=== PATIENT | male | born 1995 | race Hispanic/Latino ===

== ENCOUNTER 2017-12-21 09:01 | Emergency (ER) | payer SELFPAY ==
--- NOTE | 2017-12-21 09:17 | ER ---
Nurse's Notes [facility] Name: Cam Hargrove Age: 22 yrs Sex: Male : 1995 Arrival Date: 12/21/2017 Time: 09:05 Bed 13 Private MD: None, None Diagnosis: Acute pharyngitis Presentation: 12/21 09:14 Presenting complaint: Patient states: Sore throat started yesterday, worse today. jl7 Denies shortness of breath and cough. Transition of care: patient was not received from another setting of care. Onset of symptoms was December 20, 2017. Risk Assessment: Do you want to hurt yourself or someone else? Patient reports no desire to harm self or others. Initial Sepsis Screen: Does the patient meet any 2 criteria? No. Patient's initial sepsis screen is negative. Does the patient have a suspected source of infection? No. Patient's initial sepsis screen is negative. Care prior to arrival: None. 09:14 Method Of Arrival: Ambulatory [facility] 09:14 Acuity: YE 4 jl7 Triage Assessment: 09:16 General: Appears in no apparent distress. uncomfortable, Behavior is calm, cooperative, jl7 appropriate for age. Pain: Complains of pain in throat Pain does not radiate. Pain currently is 10 out of 10 on a pain scale. Quality of pain is described as "sore" Pain began 1 day ago. Is continuous, Aggravated by "swallowing". EENT: Throat is reddened has enlarged tonsils bilaterally. Neuro: Level of Consciousness is awake, alert, obeys commands, Oriented to person, place, time, situation. Cardiovascular: Patient's skin is warm and dry. Respiratory: Airway is patent Respiratory effort is even, unlabored, Respiratory pattern is regular, symmetrical. GI: No signs and/or symptoms were reported involving the gastrointestinal system. Patient currently denies diarrhea, nausea, vomiting. : No signs and/or symptoms were reported regarding the genitourinary system. Derm: Skin is pink, warm \\T\\ dry. Musculoskeletal: No signs and/or symptoms reported regarding the musculoskeletal system. Historical: - Allergies: 09:16 No Known Allergies; jl7 - Home Meds: 09:16 None [Active]; jl7 - PMHx: 09:16 Anxiety; Hypertension; jl7 - PSHx: 09:16 None; jl7 - Immunization history:: Adult Immunizations unknown. - Social history:: Smoking status: Patient uses tobacco products, smokes one-half pack cigarettes per day. - Ebola Screening: : No symptoms or risks identified at this time. Screenin:18 Abuse screen: Denies threats or abuse. Denies injuries from another. Nutritional jl7 screening: No deficits noted. Tuberculosis screening: No symptoms or risk factors identified. Fall Risk None identified. Assessment: 09:18 General: See triage assessment. Respiratory: Airway is patent Respiratory effort is jl7 even, unlabored, Respiratory pattern is regular, symmetrical, Breath sounds are clear. Vital Signs: 09:16 BP 142 / 101; Pulse 101; Resp 18 S; Temp 99.9(O); Pulse Ox 96% on R/A; Weight 90.72 kg jl7 (R); Height 6 ft. 1 in. (185.42 cm) (R); Pain 10/10; 09:34 BP 150 / 98; Pulse 87; Resp 18; Pulse Ox 98% ; jl7 09:16 Body Mass Index 26.39 (90.72 kg, 185.42 cm) jl7 ED Course: 09:05 Patient arrived in ED. mr 09:05 None, None is Private Physician. mr 09:06 Natalya Quijano, LEXIE is Primary Nurse. jl7 09:07 Foreign Mcdowell MD is Attending Physician. kdr 09:15 Triage completed. jl7 09:16 Arm band placed on right wrist. jl7 09:18 Patient has correct armband on for positive identification. Bed in low position. Call jl7 light in reach. Side rails up X 1. 09:18 Pulse ox on. NIBP on. jl7 09:18 No provider procedures requiring assistance completed. Patient did not have IV access jl7 during this emergency room visit. Administered Medications: 09:26 Drug: traMADol 50 mg Route: PO; jl7 09:33 Follow up: Response: Medication administered at discharge. jl7 09:26 Drug: Amoxicillin 500 mg Route: PO; jl7 09:33 Follow up: Response: Medication administered at discharge. jl7 Outcome: 09:16 Discharge ordered by . kdr 09:32 Discharged to home ambulatory. jl7 09:32 Condition: stable 09:32 Discharge instructions given to patient, Instructed on discharge instructions, follow up and referral plans. medication usage, Demonstrated understanding of instructions, follow-up care, medications, Prescriptions given X 2. 09:34 Patient left the ED. jl7 Signatures: Foreign Mcdowell MD MD [facility] JayLisha Jahala, RN RN jl7
--- NOTE | 2017-12-21 09:17 | EDPHYS ---
Physician Documentation [facility] Name: Cam Hargrove Age: 22 yrs Sex: Male : 1995 Arrival Date: 12/21/2017 Time: 09:05 Bed 13 Private MD: None, None ED Physician Foreign Mcdowell HPI: 12/21 09:22 This 22 yrs old Male presents to ER via Ambulatory with complaints of Sore kdr Throat. 09:22 The patient presents with sore throat, dysphagia, of solids, of liquids, of both solids kdr and liquids. The patient describes throat pain as constant, raw, scratchy. Onset: The symptoms/episode began/occurred gradually, 3 day(s) ago. Severity of symptoms: At their worst the symptoms were mild, in the emergency department the symptoms are unchanged. Modifying factors: The symptoms are alleviated by nothing, the symptoms are aggravated by fluids, foods, swallowing, Patient's oral intake status: good. Associated signs and symptoms: The patient has no apparent associated signs or symptoms. The patient has experienced similar episodes in the past, a few times. The patient has not recently seen a physician. Historical: - Allergies: 09:16 No Known Allergies; jl7 - Home Meds: 09:16 None [Active]; jl7 - PMHx: 09:16 Anxiety; Hypertension; jl7 - PSHx: 09:16 None; jl7 - Immunization history:: Adult Immunizations unknown. - Social history:: Smoking status: Patient uses tobacco products, smokes one-half pack cigarettes per day. - Ebola Screening: : No symptoms or risks identified at this time. ROS: 09:22 Constitutional: Negative for fever, chills, and weight loss, Eyes: Negative for injury, kdr pain, redness, and discharge, Neck: Negative for injury, pain, and swelling, Cardiovascular: Negative for chest pain, palpitations, and edema, Respiratory: Negative for shortness of breath, cough, wheezing, and pleuritic chest pain, Abdomen/GI: Negative for abdominal pain, nausea, vomiting, diarrhea, and constipation, Back: Negative for injury and pain, : Negative for injury, bleeding, discharge, and swelling, MS/Extremity: Negative for injury and deformity, Skin: Negative for injury, rash, and discoloration, Neuro: Negative for headache, weakness, numbness, tingling, and seizure activity. Psych: Negative for depression, anxiety, suicide ideation, homicidal ideation, and hallucinations, Allergy/Immunology: Negative for hives, rash, and allergies, Endocrine: Negative for neck swelling, polydipsia, polyuria, polyphagia, and marked weight changes, Hematologic/Lymphatic: Negative for swollen nodes, abnormal bleeding, and unusual bruising. 09:22 ENT: Positive for difficulty swallowing, Negative for difficulty handling secretions. Exam: 09:22 Constitutional: This is a well developed, well nourished patient who is awake, alert, kdr and in no acute distress. Head/Face: Normocephalic, atraumatic. Eyes: Pupils equal round and reactive to light, extra-ocular motions intact. Lids and lashes normal. Conjunctiva and sclera are non-icteric and not injected. Cornea within normal limits. Periorbital areas with no swelling, redness, or edema. Neck: Trachea midline, no thyromegaly or masses palpated, and no cervical lymphadenopathy. Supple, full range of motion without nuchal rigidity, or vertebral point tenderness. No Meningismus. Chest/axilla: Normal chest wall appearance and motion. Nontender with no deformity. No lesions are appreciated. Cardiovascular: Regular rate and rhythm with a normal S1 and S2. No gallops, murmurs, or rubs. Normal PMI, no JVD. No pulse deficits. Respiratory: Lungs have equal breath sounds bilaterally, clear to auscultation and percussion. No rales, rhonchi or wheezes noted. No increased work of breathing, no retractions or nasal flaring. Abdomen/GI: Soft, non-tender, with normal bowel sounds. No distension or tympany. No guarding or rebound. No evidence of tenderness throughout. Back: No spinal tenderness. No costovertebral tenderness. Full range of motion. 09:22 ENT: Mouth: is normal, Posterior pharynx: Airway: normal, Tonsils: bilaterally enlarged, with erythema, Uvula: midline, swelling, that is moderate. Vital Signs: 09:16 BP 142 / 101; Pulse 101; Resp 18 S; Temp 99.9(O); Pulse Ox 96% on R/A; Weight 90.72 kg jl7 (R); Height 6 ft. 1 in. (185.42 cm) (R); Pain 10/10; 09:34 BP 150 / 98; Pulse 87; Resp 18; Pulse Ox 98% ; jl7 09:16 Body Mass Index 26.39 (90.72 kg, 185.42 cm) 7 MDM: 09:16 Patient medically screened. kdr 09:22 Data reviewed: vital signs, nurses notes. Counseling: I had a detailed discussion with kdr the patient and/or guardian regarding: the historical points, exam findings, and any diagnostic results supporting the discharge/admit diagnosis, the need for outpatient follow up. Administered Medications: 09: Drug: traMADol 50 mg Route: PO; jl7 :33 Follow up: Response: Medication administered at discharge. jl7 09: Drug: Amoxicillin 500 mg Route: PO; jl7 :33 Follow up: Response: Medication administered at discharge. 7 Disposition: 12/21/17 09:16 Discharged to Home. Impression: Acute pharyngitis. - Condition is Stable. - Discharge Instructions: Pharyngitis. - Prescriptions for Amoxicillin 500 mg Oral Capsule - take 1 capsule by ORAL route every 8 hours for 10 days; 30 tablet. Tramadol 50 mg Oral Tablet - take 1 tablet by ORAL route every 8 hours as needed; 12 tablet. - Medication Reconciliation Form, Thank You Letter, Antibiotic Education form. - Follow up: Private Physician; When: 2 - 3 days; Reason: If symptoms return, Further diagnostic work-up, Recheck today's complaints, Continuance of care, Re-evaluation by your physician. - Problem is new. - Symptoms are unchanged. Signatures: Foreign Mcdowell MD MD kdr Natalya Quijano RN RN jl7 Corrections: (The following items were deleted from the chart) 09:34 09:16 12/21/2017 09:16 Discharged to Home. Impression: Acute pharyngitis. Condition is jl Stable. Forms are Medication Reconciliation Form, Thank You Letter, Antibiotic Education, Prescription Opioid Use. Follow up: Private Physician; When: 2 - 3 days; Reason: If symptoms return, Further diagnostic work-up, Recheck today's complaints, Continuance of care, Re-evaluation by your physician. Problem is new. Symptoms are unchanged. kdr
[2017-12-21] MEDS ORDERED: TRAMADOL HCL 50 MG TAB ONE (09:25)
[2017-12-21] MEDS ORDERED: AMOXICILLIN TRIHYDR 250 MG CAP ONE (09:25)
== END 2017-12-21 09:34 | disposition home or self-care (01) ==
LOC: ER 09:01
DX: J02.9 Acute pharyngitis, unspecified (principal); I10 Essential (primary) hypertension; F17.290 Nicotine dependence, other tobacco product, uncomplicated
CPT/HCPCS: 99283

== ENCOUNTER 2018-03-30 09:30 | Emergency (ER) | payer SELFPAY ==
[2018-03-30] MEDS ORDERED: IBUPROFEN 200 MG TAB PO ONE (10:05)
--- NOTE | 2018-03-30 10:42 | ER ---
Nurse's Notes [facility] Name: Cam Hargrove Age: 22 yrs Sex: Male : 1995 Arrival Date: 03/30/2018 Time: 09:32 Bed 12 Private MD: None, None Diagnosis: Contusion of unspecified finger with damage to nail Presentation: 03/30 09:43 Presenting complaint: Patient states: right thumb was slammed in car door last night iw around 1 am, pain, mild swelling, bruising to thumb. Transition of care: patient was not received from another setting of care. Onset of symptoms was March 30, 2018. Risk Assessment: Do you want to hurt yourself or someone else? Patient reports no desire to harm self or others. Initial Sepsis Screen: Does the patient meet any 2 criteria? No. Patient's initial sepsis screen is negative. Does the patient have a suspected source of infection? No. Patient's initial sepsis screen is negative. Care prior to arrival: None. 09:43 Method Of Arrival: Ambulatory iw 09:43 Acuity: YE 4 iw Triage Assessment: 10:40 General: Appears in no apparent distress. Behavior is calm, cooperative. iw 10:40 Injury Description: Crush injury. iw Historical: - Allergies: 09:45 NKA; iw - Home Meds: 09:45 None [Active]; iw - PMHx: 09:45 Anxiety; Hypertension; iw - PSHx: 09:45 None; iw - Immunization history:: Adult Immunizations not up to date, Last tetanus immunization: unknown. - Social history:: Smoking status: Patient uses tobacco products, smokes one-half pack cigarettes per day. - Ebola Screening: : Patient negative for fever greater than or equal to 101.5 degrees Fahrenheit, and additional compatible Ebola Virus Disease symptoms Patient denies exposure to infectious person Patient denies travel to an Ebola-affected area in the 21 days before illness onset No symptoms or risks identified at this time. Screenin:55 Abuse screen: Denies threats or abuse. Denies injuries from another. Nutritional iw screening: No deficits noted. Tuberculosis screening: No symptoms or risk factors identified. Fall Risk None identified. Assessment: 10:40 General: Appears in no apparent distress. comfortable, Behavior is calm, cooperative. iw Pain: Complains of pain in right thumbnail. Neuro: Level of Consciousness is awake, alert, obeys commands, Oriented to person, place, time, Moves all extremities. Full function. Cardiovascular: Patient's skin is warm and dry. Respiratory: Respiratory effort is even, unlabored, Respiratory pattern is regular, symmetrical. Derm: Skin is intact, is healthy with good turgor. Musculoskeletal: Range of motion: intact in all extremities. Injury Description: Crush injury sustained to right thumbnail. Vital Signs: 09:44 BP 149 / 85; Pulse 85; Resp 16; Temp 98.2; Pulse Ox 100% on R/A; Weight 92.99 kg; iw Height 6 ft. 1 in. (185.42 cm); Pain 10; 09:44 Body Mass Index 27.05 (92.99 kg, 185.42 cm) iw ED Course: 09:32 Patient arrived in ED. mr 09:32 None, None is Private Physician. mr 09:43 Karon Madrid RN is Primary Nurse. iw 09:44 Triage completed. iw 09:44 Arm band placed on. iw 09:46 Sudhakar Ruvalcaba MD is Attending Physician. gs 10:16 Hand Right 3 View XRAY In Process Unspecified. EDMS 10:39 Osmany Rosa MD is Referral Physician. gs 10:40 Patient has correct armband on for positive identification. iw 10:57 No provider procedures requiring assistance completed. Patient did not have IV access iw during this emergency room visit. Administered Medications: 10:07 Drug: Ibuprofen 600 mg Route: PO; iw Outcome: 10:41 Discharge ordered by . gs 10:57 Discharged to home ambulatory, with family. iw 10:57 Condition: good 10:57 Discharge instructions given to patient, Instructed on discharge instructions, follow up and referral plans. Demonstrated understanding of instructions, follow-up care, medications, Prescriptions given X 1. 10:58 Patient left the ED. iw Signatures: Dispatcher [employer] [facility] Jacqueline Jay mr Karon Madrid RN RN iw Sudhakar Ruvalcaba MD MD gs
--- NOTE | 2018-03-30 10:42 | EDPHYS ---
Physician Documentation [facility] Name: Cam Hargrove Age: 22 yrs Sex: Male : 1995 Arrival Date: 03/30/2018 Time: 09:32 Bed 12 Private MD: None, None ED Physician Sudhakar Ruvalcaba HPI: 03/30 10:34 This 22 yrs old Male presents to ER via Ambulatory with complaints of Thumb gs Injury. 10:34 The patient or guardian reports injury. The complaints affect the right thumbnail. gs Context: resulted from a crush injury. Onset: The symptoms/episode began/occurred acutely, yesterday. Modifying factors: The symptoms are alleviated by nothing, the symptoms are aggravated by movement. Associated signs and symptoms: Pertinent negatives: cyanosis distally, decreased sensation distally, numbness distally, tingling distally. Severity of symptoms: At their worst the symptoms were moderate. The patient has not experienced similar symptoms in the past. Historical: - Allergies: 09:45 NKA; iw - Home Meds: 09:45 None [Active]; iw - PMHx: 09:45 Anxiety; Hypertension; iw - PSHx: 09:45 None; iw - Immunization history:: Adult Immunizations not up to date, Last tetanus immunization: unknown. - Social history:: Smoking status: Patient uses tobacco products, smokes one-half pack cigarettes per day. - Ebola Screening: : Patient negative for fever greater than or equal to 101.5 degrees Fahrenheit, and additional compatible Ebola Virus Disease symptoms Patient denies exposure to infectious person Patient denies travel to an Ebola-affected area in the 21 days before illness onset No symptoms or risks identified at this time. ROS: 10:34 All other systems are negative. gs Exam: 10:34 Constitutional: The patient appears alert, awake. gs 10:34 Musculoskeletal/extremity: Extremities: noted in the right thumbnail: pain, subungual hematoma, ROM: no acute changes, Pulses: are normal with no appreciated deficits. 10:34 Skin: Exam negative for acute changes, Appearance: Color: normal in color. Vital Signs: 09:44 BP 149 / 85; Pulse 85; Resp 16; Temp 98.2; Pulse Ox 100% on R/A; Weight 92.99 kg; iw Height 6 ft. 1 in. (185.42 cm); Pain 10/10; 09:44 Body Mass Index 27.05 (92.99 kg, 185.42 cm) iw MDM: 09:56 Patient medically screened. gs 10:34 Differential diagnosis: closed fracture, contusion, subungual hematoma. Data reviewed: vital signs, nurses notes. 10:42 ED course: not drainable, firm, not ballotable. 03/30 09:56 Order name: Hand Right 3 View XRAY Administered Medications: 10:07 Drug: Ibuprofen 600 mg Route: PO; iw Disposition: 03/30/18 10:41 Discharged to Home. Impression: Contusion of unspecified finger with damage to nail. - Condition is Stable. - Discharge Instructions: Subungual Hematoma, [id number]. - Prescriptions for Ibuprofen 600 mg Oral Tablet - take 1 tablet by ORAL route every 6 hours As needed take with food; 30 tablet. - Medication Reconciliation Form, Thank You Letter, Antibiotic Education, Prescription Opioid Use form. - Follow up: Osmany Rosa MD; When: 2 - 3 days; Reason: Re-evaluation by your physician. Signatures: Dispatcher [employer] Karon Ac RN RN Sudhakar Ruvalcaba MD MD Corrections: (The following items were deleted from the chart) 10:58 10:41 03/30/2018 10:41 Discharged to Home. Impression: Contusion of unspecified finger iw with damage to nail. Condition is Stable. Forms are Medication Reconciliation Form, Thank You Letter, Antibiotic Education, Prescription Opioid Use. Follow up: Osmany Rosa; When: 2 - 3 days; Reason: Re-evaluation by your physician.
--- NOTE | 2018-03-30 11:21 | RAD REPORT ---
EXAM DESCRIPTION: RAD - Hand Right 3 View - 03/30/2018 10:16 am CLINICAL HISTORY: PAIN COMPARISON: Hand Right 3 View dated 05/21/2015 FINDINGS: No fracture or dislocation seen. No radiopaque foreign body. Radiopaque debris suspected a long the nail bed of the first digit.
== END 2018-03-30 10:58 | disposition home or self-care (01) ==
LOC: ER 09:30
DX: S60.111A Contusion of right thumb with damage to nail, initial encounter (principal); X58.XXXA Exposure to other specified factors, initial encounter; Y93.9 Activity, unspecified; Y92.9 Unspecified place or not applicable; I10 Essential (primary) hypertension; F17.210 Nicotine dependence, cigarettes, uncomplicated
CPT/HCPCS: 99283

== ENCOUNTER 2018-10-17 10:05 | Emergency (ER) | payer SELFPAY ==
--- NOTE | 2018-10-17 11:21 | ER ---
Nurse's Notes [facility] Name: Cam Hargrove Age: 23 yrs Sex: Male : 1995 Arrival Date: 10/17/2018 Time: 10:07 Bed Treatment Private MD: None, None Diagnosis: Person with feared health complaint in whom no diagnosis is made Presentation: 10/17 10:23 Presenting complaint: Patient states: i messed up with a girl who might be tested hj positive for STD;. Transition of care: patient was not received from another setting of care. Onset of symptoms was October 17, 2018. Risk Assessment: Do you want to hurt yourself or someone else? Patient reports no desire to harm self or others. Initial Sepsis Screen: Does the patient meet any 2 criteria? No. Patient's initial sepsis screen is negative. Does the patient have a suspected source of infection? No. Patient's initial sepsis screen is negative. Care prior to arrival: None. 10:23 Method Of Arrival: Ambulatory 10:23 Acuity: YE 4 hj Historical: - Allergies: 10:25 NKA; hj - Home Meds: 10:25 None [Active]; hj - PMHx: 10:25 Anxiety; Hypertension; hj - PSHx: 10:25 None; hj - Immunization history:: Adult Immunizations up to date. - Social history:: Smoking status: Patient/guardian denies using tobacco. - Ebola Screening: : No symptoms or risks identified at this time. Screenin:35 Abuse screen: Denies threats or abuse. Denies injuries from another. Nutritional hb screening: No deficits noted. Tuberculosis screening: No symptoms or risk factors identified. Fall Risk None identified. Assessment: 10:35 General: Appears in no apparent distress. Behavior is calm, cooperative. Pain: Denies hb pain. Neuro: Level of Consciousness is awake, alert, obeys commands, Oriented to person, place, time, situation. Cardiovascular: Capillary refill < 3 seconds Patient's skin is warm and dry. Respiratory: Airway is patent Respiratory effort is even, unlabored, Respiratory pattern is regular, symmetrical. GI: No signs and/or symptoms were reported involving the gastrointestinal system. : No signs and/or symptoms were reported regarding the genitourinary system. EENT: No signs and/or symptoms were reported regarding the EENT system. Derm: Skin is intact, is healthy with good turgor. Musculoskeletal: No signs and/or symptoms reported regarding the musculoskeletal system. Vital Signs: 10:25 BP 143 / 100; Pulse 81; Resp 18; Temp 98.7(TE); Pulse Ox 100% on R/A; Weight 90.72 kg; hj Height 6 ft. 1 in. (185.42 cm); Pain 0/10; 10:25 Body Mass Index 26.39 (90.72 kg, 185.42 cm) ED Course: 10:07 Patient arrived in ED. mr 10:07 None, None is Private Physician. mr 10:24 Triage completed. hj 10:24 Arm band placed on right wrist. hj 10:28 Shazia Hull, RN is Primary Nurse. hb 10:35 Patient has correct armband on for positive identification. Call light in reach. hb 10:35 No provider procedures requiring assistance completed. Patient did not have IV access hb during this emergency room visit. 10:36 [facility] Powers [facility] 10:36 Foreign Mcdowell MD is Attending Physician. [facility] Administered Medications: No medications were administered Outcome: 11:21 Discharge ordered by MD. [facility] 11:29 Medical screen evaluation completed per provider. Patient declined treatment. hb 11:29 Condition: stable 11:29 Instructed on follow up and referral plans. Demonstrated understanding of instructions. 11:30 Patient left the ED. hb Signatures: João Powers PA PA jmm Pierre Jacqueline Uli Villanueva RN RN hj Baxter, Heather, RN RN hb Corrections: (The following items were deleted from the chart) 10:26 10:25 Pulse 81bpm; Resp 18bpm; Pulse Ox 100% RA; Temp 98.7F Temporal; 90.72 kg; Height hj 6 ft. 1 in.; BMI: 26.3; Pain 0/10; hj
--- NOTE | 2018-10-17 11:21 | EDPHYS ---
Physician Documentation [facility] Name: Cam Hargrove Age: 23 yrs Sex: Male : 1995 Arrival Date: 10/17/2018 Time: 10:07 Bed Treatment Private MD: None, None ED Physician Foreign Mcdowlel HPI: 10/17 11:10 The patient presents with a known STD exposure. This is a 23 year old male with a jmm history of anxiety and HTN that presents to the ED with concerns he may have an STD. Patient states a sexual partner was recently diagnosed with HPV or HSV. Patient denies urinary symptoms. denies rash, denies abdominal pain. Patient states he wants to get checked out for his hypertension as well. . Historical: - Allergies: 10:25 NKA; hj - Home Meds: 10:25 None [Active]; hj - PMHx: 10:25 Anxiety; Hypertension; hj - PSHx: 10:25 None; hj - Immunization history:: Adult Immunizations up to date. - Social history:: Smoking status: Patient/guardian denies using tobacco. - Ebola Screening: : No symptoms or risks identified at this time. ROS: 11:10 Constitutional: Negative for fever, chills, and weight loss, Cardiovascular: Negative jmm for chest pain, palpitations, and edema, Respiratory: Negative for shortness of breath, cough, wheezing, and pleuritic chest pain, Abdomen/GI: Negative for abdominal pain, nausea, vomiting, diarrhea, and constipation, Neuro: Negative for headache, weakness, numbness, tingling, and seizure. 11:10 All other systems are negative. Exam: 11:10 Constitutional: This is a well developed, well nourished patient who is awake, alert, jmm and in no acute distress. Head/Face: atraumatic. Eyes: EOMI, no conjunctival erythema appreciated ENT: Moist Mucus Membranes Neck: Trachea midline, Supple Chest/axilla: Normal chest wall appearance and motion. Cardiovascular: Regular rate and rhythm. No edema appreciated Respiratory: Normal respirations, no respiratory distress appreciated 11:10 Abdomen/GI: Inspection: abdomen appears normal, Bowel sounds: normal, Palpation: abdomen is soft and non-tender, in all quadrants. 11:10 Back: ROM is normal. 11:10 Musculoskeletal/extremity: ROM: intact in all extremities. 11:10 Skin: Appearance: Color: normal in color. 11:10 Neuro: Orientation: is normal, Mentation: is normal, Memory: is normal. 11:10 Psych: Behavior/mood is pleasant, cooperative. Vital Signs: 10:25 BP 143 / 100; Pulse 81; Resp 18; Temp 98.7(TE); Pulse Ox 100% on R/A; Weight 90.72 kg; hj Height 6 ft. 1 in. (185.42 cm); Pain 0/10; 10:25 Body Mass Index 26.39 (90.72 kg, 185.42 cm) hj MDM: 10:50 Patient medically screened. [facility] 10:57 Medical screen [facility]. [facility]. [facility] 11:14 Data reviewed: vital signs, nurses notes. Counseling: I had a detailed discussion with keith the patient and/or guardian regarding: the historical points, exam findings, and any diagnostic results supporting the discharge/admit diagnosis, the need for outpatient follow up, to return to the emergency department if symptoms worsen or persist or if there are any questions or concerns that arise at home. ED course: Patient is alert and non toxic in appearance in the ED. Patient has no abdominal pain. Patient is asymptomatic. Patient given information on STD clinic. Patient was given return precautions. Due to patient concerns about his blood pressure, I recommended he establish care with a PCP and gave the patient a list of resources. Patient was given return precautions if he develops any symptoms or other concerns. . Administered Medications: No medications were administered Disposition: 10:57 STD Exposure. [facility] 12:11 Co-signature as Attending Physician, Foreign Mcdowell MD I agree with the assessment and kdr plan of care. Disposition: 10/17/18 11:21 Discharged to Home. Impression: Person with feared health complaint in whom no diagnosis is made. - Condition is Stable. - Medication Reconciliation Form, Thank You Letter, Antibiotic Education, Prescription Opioid Use form. - Follow up: Private Physician; Reason: Recheck today's complaints, Continuance of care, Re-evaluation by your physician. Signatures: Foreign Mcdowell MD MD kdr Mickail, Joel, PA PA [facility] Uli Villanueva RN RN Shazia Hull RN RN Corrections: (The following items were deleted from the chart) 11:30 11:21 10/17/2018 11:21 Discharged to Home. Impression: Person with feared health hb complaint in whom no diagnosis is made. Condition is Stable. Forms are Medication Reconciliation Form, Thank You Letter, Antibiotic Education, Prescription Opioid Use. Follow up: Private Physician; Reason: Recheck today's complaints, Continuance of care, Re-evaluation by your physician. keith
== END 2018-10-17 11:30 | disposition home or self-care (01) ==
LOC: ER 10:05
DX: Z71.1 Person with feared health complaint in whom no diagnosis is made (principal); I10 Essential (primary) hypertension
CPT/HCPCS: 99281

== ENCOUNTER 2020-04-19 11:09 | Emergency (ER) | payer SELFPAY ==
[2020-04-19] MEDS ORDERED: AZITHROMYCIN 250 MG TAB ONE (12:59)
[2020-04-19] MEDS ORDERED: CEFTRIAXONE 1000 MG/VIAL ONE (12:59)
--- NOTE | 2020-04-19 13:20 | EDPHYS ---
Physician Documentation [facility] [place], [place] Name: Cam Hargrove Age: 24 yrs Sex: Male : 1995 Arrival Date: 04/19/2020 Time: 11:11 Bed 25 Private MD: ED Physician Foreign Mcdowell HPI: 04/19 14:23 This 24 yrs old Male presents to ER via Ambulatory with complaints of Penile snw Problem. 14:23 The patient presents with dysuria s/p "community support specialist". Onset: The symptoms/episode snw began/occurred suddenly, 2 day(s) ago. Associated signs and symptoms: Pertinent positives: dysuria, Pertinent negatives: discharge, lesions, fever. Severity of symptoms: At their worst the symptoms were moderate. The patient has not experienced similar symptoms in the past. The patient has not recently seen a physician. Unprotected intercourse with a female who later told him she was dx with an infection. Historical: - Allergies: 11:28 NKA; ll1 - PMHx: 11:28 Anxiety; Hypertension; ll1 - PSHx: 11:28 None; ll1 - Immunization history:: Flu vaccine is not up to date. - Social history:: Smoking status: Patient reports the use of cigarette tobacco products, denies chronic smoking, but will smoke occasionally. ROS: 14:23 Constitutional: Negative for fever, chills, and weight loss, Eyes: Negative for injury, snw pain, redness, and discharge, ENT: Negative for injury, pain, and discharge, Neck: Negative for injury, pain, and swelling, Cardiovascular: Negative for chest pain, palpitations, and edema, Respiratory: Negative for shortness of breath, cough, wheezing, and pleuritic chest pain, Abdomen/GI: Negative for abdominal pain, nausea, vomiting, diarrhea, and constipation, Back: Negative for injury and pain, MS/Extremity: Negative for injury and deformity, Skin: Negative for injury, rash, and discoloration, Neuro: Negative for headache, weakness, numbness, tingling, and seizure, Psych: Negative for depression, anxiety, suicide ideation, homicidal ideation, and hallucinations. 14:23 : Positive for burning with urination. Exam: 14:23 Constitutional: This is a well developed, well nourished patient who is awake, alert, snw and in no acute distress. Head/Face: Normocephalic, atraumatic. Eyes: Pupils equal round and reactive to light, extra-ocular motions intact. Lids and lashes normal. Conjunctiva and sclera are non-icteric and not injected. Cornea within normal limits. Periorbital areas with no swelling, redness, or edema. ENT: Nares patent. No nasal discharge, no septal abnormalities noted. Tympanic membranes are normal and external auditory canals are clear. Oropharynx with no redness, swelling, or masses, exudates, or evidence of obstruction, uvula midline. Mucous membranes moist. Neck: Trachea midline, no thyromegaly or masses palpated, and no cervical lymphadenopathy. Supple, full range of motion without nuchal rigidity, or vertebral point tenderness. No Meningismus. Chest/axilla: Normal chest wall appearance and motion. Nontender with no deformity. No lesions are appreciated. Cardiovascular: Regular rate and rhythm with a normal S1 and S2. No gallops, murmurs, or rubs. Normal PMI, no JVD. No pulse deficits. Respiratory: Lungs have equal breath sounds bilaterally, clear to auscultation and percussion. No rales, rhonchi or wheezes noted. No increased work of breathing, no retractions or nasal flaring. Abdomen/GI: Soft, non-tender, with normal bowel sounds. No distension or tympany. No guarding or rebound. No evidence of tenderness throughout. Back: No spinal tenderness. No costovertebral tenderness. Full range of motion. Skin: Warm, dry with normal turgor. Normal color with no rashes, no lesions, and no evidence of cellulitis. MS/ Extremity: Pulses equal, no cyanosis. Neurovascular intact. Full, normal range of motion. Neuro: Awake and alert, GCS 15, oriented to person, place, time, and situation. Cranial nerves II-XII grossly intact. Motor strength 5/5 in all extremities. Sensory grossly intact. Cerebellar exam normal. Normal gait. Psych: Awake, alert, with orientation to person, place and time. Behavior, mood, and affect are within normal limits. Vital Signs: 11:26 BP 137 / 87; Pulse 60; Resp 17; Temp 98.6; Pulse Ox 97% ; Weight 97.52 kg; Height 6 ft. ll1 1 in. (185.42 cm); Pain 0/10; 13:39 Pulse 62; Resp 16 S; Pulse Ox 98% on R/A; jd3 11:26 Body Mass Index 28.37 (97.52 kg, 185.42 cm) ll1 MDM: 12:29 Patient medically screened. snw 14:26 Data reviewed: vital signs, nurses notes. Data interpreted: Pulse oximetry: on room air snw is 98 %. Interpretation: normal. Counseling: I had a detailed discussion with the patient and/or guardian regarding: the historical points, exam findings, and any diagnostic results supporting the discharge/admit diagnosis, the need for outpatient follow up, to return to the emergency department if symptoms worsen or persist or if there are any questions or concerns that arise at home. Special discussion: Based on the history and exam findings, there is no indication for further emergent testing or inpatient evaluation. I discussed with the patient/guardian the need to see the primary care provider for further evaluation of the symptoms. discussed safe sex and STI clinic. 04/19 12:30 Order name: Urine Dipstick--Ancillary (enter results) hb Administered Medications: 12:53 Drug: Zithromax 1 grams Route: PO; jd3 13:40 Follow up: Response: No adverse reaction jd3 12:53 Drug: Rocephin (cefTRIAXone) 500 mg Route: IM; Site: left gluteus; jd3 13:40 Follow up: Response: No adverse reaction jd3 Disposition: 04/20 06:35 Co-signature as Attending Physician, Foreign Mcdowell MD I agree with the assessment and kdr plan of care. Disposition: 04/19/20 13:19 Discharged to Home. Impression: Urethritis and urethral syndrome. - Condition is Stable. - Discharge Instructions: Sexually Transmitted Disease, Urethritis, Adult, Safe Sex. - Medication Reconciliation Form, Thank You Letter, Antibiotic Education, Prescription Opioid Use form. - Follow up: Emergency Department; When: As needed; Reason: Worsening of condition. Follow up: Private Physician; When: 2 - 3 days; Reason: Recheck today's complaints, Continuance of care, Re-evaluation by your physician. Signatures: Dispatcher [employer] Foreign Saini MD MD kdr Waters, Shelly, DESIGN TECHNICIAN-C DESIGN TECHNICIAN-Estherw Korey Do RN RN jd3 Vanessa Stewart RN RN ll1 Corrections: (The following items were deleted from the chart) 04/19 13:39 13:19 04/19/2020 13:19 Discharged to Home. Impression: Urethritis and urethral jd3 syndrome. Condition is Stable. Forms are Medication Reconciliation Form, Thank You Letter, Antibiotic Education, Prescription Opioid Use. Follow up: Emergency Department; When: As needed; Reason: Worsening of condition. Follow up: Private Physician; When: 2 - 3 days; Reason: Recheck today's complaints, Continuance of care, Re-evaluation by your physician. snw
--- NOTE | 2020-04-19 13:20 | ER ---
Nurse's Notes [facility] Name: Cam Hargrove Age: 24 yrs Sex: Male : 1995 Arrival Date: 04/19/2020 Time: 11:11 Bed 25 [facility] MD: Diagnosis: Urethritis and urethral syndrome Presentation: 04/19 11:26 Chief complaint: Patient states: irritation to penis for 1 week. States a girl told him ll1 she had STD. He came for treatment. Coronavirus screen: Client denies travel out of the [place] in the last 14 days. At this time, the client does not indicate any symptoms associated with coronavirus-19. Ebola Screen: Patient denies travel to an Ebola-affected area in the 21 days before illness onset. Initial Sepsis Screen: Does the patient meet any 2 criteria? No. Patient's initial sepsis screen is negative. Does the patient have a suspected source of infection? Yes: Other: possible STD. Risk Assessment: Do you want to hurt yourself or someone else? Patient reports no desire to harm self or others. Onset of symptoms was April 13, 2020. 11:26 Method Of Arrival: Ambulatory ll1 11:26 Acuity: YE 4 ll1 Historical: - Allergies: 11:28 NKA; ll1 - PMHx: 11:28 Anxiety; Hypertension; ll1 - PSHx: 11:28 None; ll1 - Immunization history:: Flu vaccine is not up to date. - Social history:: Smoking status: Patient reports the use of cigarette tobacco products, denies chronic smoking, but will smoke occasionally. Screenin:33 Abuse screen: Denies threats or abuse. Nutritional screening: No deficits noted. jd3 Tuberculosis screening: No symptoms or risk factors identified. Fall Risk Ambulatory Aid- None/Bed Rest/Nurse Assist (0 pts). Gait- Normal/Bed Rest/Wheelchair (0 pts) Mental Status- Oriented to own ability (0 pts). Total Villasenor Fall Scale indicates No Risk (0-24 pts). Assessment: 12:31 General: Appears in no apparent distress. uncomfortable, Behavior is calm, cooperative, jd3 appropriate for age. Pain: Complains of pain in groin Quality of pain is described as stinging. Neuro: Level of Consciousness is awake, alert, obeys commands, Oriented to person, place, time, situation. Cardiovascular: Denies chest pain, Capillary refill < 3 seconds Patient's skin is warm and dry. Respiratory: Airway is patent Respiratory effort is even, unlabored, Respiratory pattern is regular, symmetrical, Denies cough, shortness of breath. GI: No signs and/or symptoms were reported involving the gastrointestinal system. : Reports burning sensation to the penis. EENT: No signs and/or symptoms were reported regarding the EENT system. Derm: Skin is intact, Skin is dry, Skin is normal, Skin temperature is warm. Musculoskeletal: Circulation, motion, and sensation intact. Range of motion: intact in all extremities. 13:39 Reassessment: Patient appears in no apparent distress at this time. Patient and/or jd3 family updated on plan of care and expected duration. Pain level reassessed. Patient is alert, oriented x 3, equal unlabored respirations, skin warm/dry/pink. Vital Signs: 11:26 BP 137 / 87; Pulse 60; Resp 17; Temp 98.6; Pulse Ox 97% ; Weight 97.52 kg; Height 6 ft. ll1 1 in. (185.42 cm); Pain 0/10; 13:39 Pulse 62; Resp 16 S; Pulse Ox 98% on R/A; jd3 11:26 Body Mass Index 28.37 (97.52 kg, 185.42 cm) ll1 ED Course: 11:11 Patient arrived in ED. ds1 11:28 Triage completed. ll1 11:28 Arm band placed on. ll1 12:15 Korey Do RN is Primary Nurse. jd3 12:17 [facility]. snw 12:17 Foreign Mcdowell MD is Attending Physician. snw 12:33 Patient has correct armband on for positive identification. Bed in low position. Call jd3 light in reach. Side rails up X 1. Pulse ox on. NIBP on. 13:39 No provider procedures requiring assistance completed. Patient did not have IV access jd3 during this emergency room visit. Administered Medications: 12:53 Drug: Zithromax 1 grams Route: PO; jd3 13:40 Follow up: Response: No adverse reaction jd3 12:53 Drug: Rocephin (cefTRIAXone) 500 mg Route: IM; Site: left gluteus; jd3 13:40 Follow up: Response: No adverse reaction jd3 Outcome: 13:19 Discharge ordered by . suzi 13:39 Discharged to home ambulatory. jd3 13:39 Condition: stable 13:39 Discharge instructions given to patient, Instructed on discharge instructions, follow up and referral plans. Demonstrated understanding of instructions, follow-up care. 13:39 Patient left the ED. jd3 Signatures: Violeta Jones, VET TECH-C VET TECH-Eden Mcleod ds1 Korey Do RN RN jd3 Vanessa Stewart RN RN ll1
[2020-04-19 13:47] LABS: Urine Blood TRACE (NEG); Urine Glucose NEGATIVE (NEG); Urine Protein NEGATIVE (NEG); Urine Specific Gravity 1.025 (1.005-1.030); Urine pH 6.5 (5.0-7.0)
[2020-04-19 15:04] VITALS: BP 137/87; TEMP 98.6
[2020-04-19 15:05] VITALS: O2SAT 98
== END 2020-04-19 13:39 | disposition home or self-care (01) ==
LOC: ER 11:09
DX: N34.2 Other urethritis (principal); I10 Essential (primary) hypertension; Z72.0 Tobacco use
CPT/HCPCS: 81003; 96372; 99283